=== PATIENT | female | born 1975 | race Caucasian/White ===

== ENCOUNTER 2018-01-04 06:18 | Day surgery (SDC) | payer MEDICAID ==
[~2018-01-04 06:18] MED LIST: SOD CHLORIDE 0.9% 1,000 ML IV
[2018-01-04] MEDS ORDERED: MIDAZOLAM 1 MG/ML 2 ML INJ (12:04)
[2018-01-04] MEDS ORDERED: FENTAnyl 50 MCG/ML VIAL (12:04)
[2018-01-04] MEDS ORDERED: PROPOFOL 20 ML (12:04)
[2018-01-04] MEDS ORDERED: ONDANSETRON 4 MG INJ (12:05)
[2018-01-04] MEDS ORDERED: DEXAMETHASONE 4 MG/ML 1 ML INJ (12:05)
[2018-01-04] MEDS ORDERED: CEFAZOLIN 1 GM INJ (12:06)
[2018-01-04] MEDS ORDERED: METOCLOPRAMIDE 10 MG INJ (13:17)
[2018-01-04] MEDS ORDERED: HYDROmorphONE 2 MG/ML SYG (13:26)
[2018-01-04] MEDS ORDERED: FENTAnyl 50 MCG/ML VIAL IV ×2 (14:00)
[2018-01-04] MEDS: CEFAZOLIN 2 GM/50 ML (PMX) 50 ML IVPB (14:19)
[2018-01-04] MEDS: ONDANSETRON 4 MG INJ IV (14:59)
[2018-01-04] MEDS: HYDROCODONE/APAP (7.5/325) TAB PO (15:02)
[2018-01-04] MEDS: OXYCODONE/ACETAMINOPHEN (5/325) TAB PO (17:02)
== END 2018-01-04 17:17 | disposition home or self-care (01) ==
LOC: SDS 06:18
DX: N60.12 Diffuse cystic mastopathy of left breast (principal); N60.22 Fibroadenosis of left breast
CPT/HCPCS: 19301; 88307